=== PATIENT | female | born 1965 | race Caucasian/White ===

== ENCOUNTER → 2019-01-17 08:11 | Outpatient (CLI) | payer OTHER, SELFPAY ==
--- NOTE | 2019-01-17 08:13 | DI.MRI.S_ITS ---
PROCEDURE: MR SHOULDER RT WO CON INDICATIONS: Rule out torn rotator cuff or tendon TECHNIQUE: Noncontrast oblique coronal T2 fast spin echo with fat saturation, oblique sagittal T1 spin echo and T2 fast spin echo with fat saturation, axial T1 spin echo and T2 fast spin echo with fat saturation through the shoulder. COMPARISON: None. FINDINGS: Image quality: Degraded by motion artifact. Rotator cuff: There is severe motion artifact on the fat-suppressed sagittal T2 weighted pulse sequence however on the coronal sequences, there appears to be supraspinatus tendinopathy and low grade articular and bursal surface fraying. No full thickness defect seen. Infraspinatus tendinopathy is suspected, with bursal and articular surface fraying. Subscapularis and teres minor tendons grossly intact. No definite atrophy of the rotator cuff musculature Bones and bursae: No bone marrow contusions or fractures. Moderate hypertrophic acromioclavicular joint degeneration. The acromion demonstrates conventional anatomy, without an os acromiale. No pathologic subacromial-subdeltoid or subcoracoid bursal fluid is present. Capsule and soft tissues: There is ill-defined presumed degenerative appearance of the superior labrum however no discrete fluid signal intensities are identified by strict MR criteria. Remaining labrum appears grossly intact. The long head of the biceps tendon demonstrates normal location and morphology. The rotator interval appears normal, without fibrosis. The coracohumeral ligament is normal in thickness. IMPRESSION: Severely motion degraded examination in particular involving the fat-suppressed sagittal T2 weighted pulse sequence. Within those constraints, there is supraspinatus and infraspinatus tendinopathy with low-grade bursal and articular surface fraying. No full thickness defect identified. Ill-defined presumed degeneration/fraying of the superior labrum, which is potentially age-appropriate. Dictated by: Didier Arnold M.D. on 01/17/2019 at 10:37 Approved by: Didier Arnold M.D. on 01/17/2019 at 10:46
== END ==
PROVIDERS: PCP Family Medicine; Visit Provider Nurse Practitioner
DX: M25.511 Pain in right shoulder (principal); M19.011 Primary osteoarthritis, right shoulder; M67.911 Unspecified disorder of synovium and tendon, right shoulder
CPT/HCPCS: 73221

== ENCOUNTER → 2019-06-23 10:16 | Outpatient (CLI) | payer OTHER, SELFPAY ==
[2019-06-23 10:51] LABS: Add Manual Diff / Slide Review NO; Basophils Absolute Auto 0 /uL (0-100); Basophils Percent Auto 0.7 % (0-2); Eosinophils Absolute Auto 100 /uL (0-450); Eosinophils Percent Auto 0.8 % (2-4); Hematocrit 40.1 % (36-46); Hemoglobin 13.4 g/dL (12.0-16.0); Lymphocytes Absolute Auto 1700 /uL (1100-4500); Lymphocytes Percent Auto 25.3 % (25-40); Mean Corpuscular HGB Conc 33.4 % (30-36); Mean Corpuscular Hemoglobin 33.3 PG (26-34); Mean Corpuscular Volume 99.8 fL (80-100); Monocytes Absolute Auto 600 /uL (0-900); Monocytes Percent Auto 8.3 % (3-14); Neutrophils Absolute Auto 4500 /uL (1500-7000); Neutrophils Percent Auto 64.9 % (50-75); Platelet Count 251 X10^3/uL (150-400); Red Blood Cell Count 4.02 X10^6/uL (4.0-5.2); Red Cell Distribution Width 14.4 % (11.6-14.8); White Blood Cell Count 6.9 X10^3/uL (4.5-11.0)
[2019-06-23 11:36] LABS: Thyroid Stimulating Hormone 0.86 uIU/mL (0.47-4.68)
[2019-06-23 16:23] LABS: Free T3, Triiodothyronine Free 2.94 pg/mL (2.77-5.27); Free T4, Direct Thyroxine 0.86 ng/dL (0.78-2.19)
== END ==
PROVIDERS: PCP Family Medicine; Visit Provider Family Medicine
DX: D64.9 Anemia, unspecified (principal); E28.319 Asymptomatic premature menopause
CPT/HCPCS: 36415; 84439; 84443; 84481; 85025

== ENCOUNTER → 2019-08-10 10:38 | Outpatient (CLI) | payer OTHER, SELFPAY ==
[2019-08-10 11:04] LABS: Add Manual Diff / Slide Review NO; Basophils Absolute Auto 0 /uL (0-100); Basophils Percent Auto 0.5 % (0-2); Eosinophils Absolute Auto 0 /uL (0-450); Eosinophils Percent Auto 0.3 % (2-4); Hematocrit 44.6 % (36-46); Hemoglobin 15.2 g/dL (12.0-16.0); Lymphocytes Absolute Auto 1800 /uL (1100-4500); Lymphocytes Percent Auto 19.9 % (25-40); Mean Corpuscular Volume 100.3 fL (80-100); Monocytes Absolute Auto 600 /uL (0-900); Neutrophils Absolute Auto 6800 /uL (1500-7000); Neutrophils Percent Auto 73.3 % (50-75); Platelet Count 273 X10^3/uL (150-400); Red Blood Cell Count 4.45 X10^6/uL (4.0-5.2); Red Cell Distribution Width 14.1 % (11.6-14.8); White Blood Cell Count 9.3 X10^3/uL (4.5-11.0)
[2019-08-10 11:39] LABS: Alanine Aminotransferase 24 IU/L (<35); Albumin Globulin Ratio 2.1 (1.0-2.8); Alkaline Phosphatase 115 U/L (38-126); Aspartate Aminotransferase 30 IU/L (14-36); BUN Creatinine Ratio 33.3 (6-22); Bilirubin Total 0.4 mg/dL (0.2-1.3); Blood Urea Nitrogen 20 mg/dL (7-17); Calcium 10.1 mg/dL (8.4-10.2); Carbon Dioxide 28 mmol/L (22-32); Chloride 106 mmol/L (98-107); Estimated Glomerular Filt Rate > 60.0 mL/min (>60); Globulin 2.4 g/dL (1.7-4.1); Glucose 111 mg/dL (70-100); HEMOLYSIS < 15 (0-50); Potassium 4.7 mmol/L (3.4-5.1); Sodium 142 mmol/L (137-145); Total Protein 7.4 g/dL (6.3-8.2)
[2019-08-10 11:55] LABS: Free T3, Triiodothyronine Free 3.29 pg/mL (2.77-5.27); Free T4, Direct Thyroxine 0.94 ng/dL (0.78-2.19)
[2019-08-10 12:09] LABS: Thyroid Stimulating Hormone 0.84 uIU/mL (0.47-4.68)
[2019-08-11 16:24] LABS: Vitamin B12 426 pg/mL (239-931)
== END ==
PROVIDERS: PCP Family Medicine; Visit Provider Family Medicine
DX: C81.90 Hodgkin lymphoma, unspecified, unspecified site (principal); I10 Essential (primary) hypertension; R63.4 Abnormal weight loss; D75.89 Other specified diseases of blood and blood-forming organs
CPT/HCPCS: 36415; 80053; 82607; 84439; 84443; 84481; 85025

== ENCOUNTER → 2022-10-27 09:31 | Outpatient (CLI) | payer OTHER, SELFPAY ==
--- NOTE | 2022-10-27 09:32 | DI.MG.S_ITS ---
BILATERAL DIGITAL SCREENING MAMMOGRAM 3D/2D WITH CAD: 10/27/2022 CLINICAL: Routine screening. Comparison is made to exams dated: 07/16/2012 mammogram and 09/28/2008 mammogram - [facility]. There are scattered areas of fibroglandular density in both breasts (category b / 25%-50% glandular tissue). Current study was also evaluated with a Computer Aided Detection (CAD) system. There is a new irregular asymmetry in the right breast at 4 o'clock posterior depth. No other significant masses, calcifications, or other findings are seen in either breast. IMPRESSION: INCOMPLETE: NEEDS ADDITIONAL IMAGING EVALUATION The new irregular asymmetry in the right breast is indeterminate. Additional views with possible ultrasound are recommended. Based on the Tyrer Cuzick model (a risk assessment model) the patient's lifetime risk is 3.6% and her 10 year risk is 1.1%. According to the ACR, ACS, and NCCN guidelines, an annual breast MRI exam along with mammogram is recommended if the patient's lifetime risk is 20% or greater. This exam was interpreted at Station ID: [id number]. NOTE: For mammograms, a report in lay terms will be sent to the patient. Approximately 15% of breast malignancies will not be visualized mammographically. In the management of a palpable breast mass, a negative mammogram must not discourage biopsy of a clinically suspicious lesion. Electronically Signed By: Mukesh fountain/zhane:10/27/2022 10:29:05 letter sent: Additional Imaging Needed ACR BI-RADS Category 0: Incomplete 3340F
== END ==
PROVIDERS: PCP Family Medicine; Referring Provider Family Medicine; Visit Provider Family Medicine
DX: Z12.31 Encounter for screening mammogram for malignant neoplasm of breast (principal)
CPT/HCPCS: 77063; 77067

== ENCOUNTER → 2022-12-12 08:41 | Outpatient (CLI) | payer OTHER, SELFPAY ==
--- NOTE | 2022-12-12 | DI.MG.S_ITS ---
UNILATERAL RIGHT DIGITAL DIAGNOSTIC MAMMOGRAM 3D/2D WITH ADDITIONAL VIEWS: 12/12/2022 CLINICAL: Additional evaluation requested from prior study. Comparison is made to exams dated: 10/27/2022 mammogram and 07/16/2012 mammogram - [facility]. There are scattered areas of fibroglandular density in the right breast (category b / 25%-50% glandular tissue). There is a new oval focal asymmetry with a circumscribed margin in the right breast at 4 o'clock posterior depth. This is seen in additional views. No other significant masses or calcifications are seen in the breast. IMPRESSION: INCOMPLETE: NEEDS ADDITIONAL IMAGING EVALUATION The new oval focal asymmetry in the right breast is indeterminate. An ultrasound is recommended. Based on the Tyrer Cuzick model (a risk assessment model) the patient's lifetime risk is 3.6% and her 10 year risk is 1.1%. According to the ACR, ACS, and NCCN guidelines, an annual breast MRI exam along with mammogram is recommended if the patient's lifetime risk is 20% or greater. This exam was interpreted at Station ID: [id number]. NOTE: For mammograms, a report in lay terms will be sent to the patient. Approximately 15% of breast malignancies will not be visualized mammographically. In the management of a palpable breast mass, a negative mammogram must not discourage biopsy of a clinically suspicious lesion. Electronically Signed By: Fransisco jon/zhane:12/12/2022 11:04:17 ACR BI-RADS Category 0: Incomplete 3340F
--- NOTE | 2022-12-12 08:42 | DI.US.S_ITS ---
LIMITED ULTRASOUND OF RIGHT BREAST: 12/12/2022 CLINICAL: Additional views of right breast. Comparison is made to exams dated: 12/12/2022 mammogram, 10/27/2022 mammogram, and 07/16/2012 mammogram - [facility]. Color flow ultrasound of the right breast 4 o'clock region was performed. Meeks scale images of the real-time examination were reviewed. There is a 0.3 cm x 0.3 cm x 0.2 cm oval mass with a circumscribed margin in the right breast at 4 o'clock posterior depth 10 cm from the nipple. This oval mass is hypoechoic. This correlates with mammography findings. IMPRESSION: PROBABLY BENIGN The 0.3 cm x 0.3 cm x 0.2 cm oval mass in the right breast most likely is a complicated cyst and is probably benign. A follow-up right mammogram and an ultrasound in 6 months is recommended to demonstrate stability. This exam was interpreted at Station ID: [id number]. Electronically Signed By: Fransisco jon/zhane:12/12/2022 11:06:22 letter sent: Followup Recommended Ultrasound BI-RADS: 3 Probably benign
== END ==
PROVIDERS: PCP Family Medicine; Referring Provider Family Medicine; Visit Provider Family Medicine
DX: R92.8 Other abnormal and inconclusive findings on diagnostic imaging of breast (principal); N63.14 Unspecified lump in the right breast, lower inner quadrant
CPT/HCPCS: 76642; 77065; G0279

== ENCOUNTER → 2023-05-22 09:19 | Outpatient (CLI) | payer OTHER, SELFPAY ==
--- NOTE | 2023-05-22 09:20 | DI.US.S_ITS ---
ULTRASOUND OF RIGHT BREAST: 05/22/2023 CLINICAL: 6 month follow up of right breast. Comparison is made to exams dated: 05/22/2023 mammogram, 12/12/2022 ultrasound, 12/12/2022 mammogram, 10/27/2022 mammogram, 07/16/2012 mammogram, and 09/28/2008 mammogram - [facility]. Color flow ultrasound of the right breast was performed. Meeks scale images of the real-time examination were reviewed. There is a 0.4 cm x 0.2 cm x 0.5 cm oval mass with a circumscribed margin in the right breast at 4 o'clock posterior depth 10 cm from the nipple. This oval mass is hypoechoic with internal echoes and no posterior acoustic shadowing or enhancement. This abnormality is not significantly changed and correlates with mammography findings. Color flow imaging demonstrates that there is no vascularity present. IMPRESSION: PROBABLY BENIGN The 0.4 cm x 0.2 cm x 0.5 cm oval mass in the right breast most likely is a complicated cyst and is probably benign. A follow-up bilateral mammogram and a right ultrasound in 6 months is recommended to demonstrate stability. Findings and recommendations were conveyed to the patient during today's evaluation. This exam was interpreted at Station ID: [id number]. Electronically Signed By: Malik Escobar M.D. aty/:05/22/2023 11:33:31 letter sent: Followup Recommended Ultrasound BI-RADS: 3 Probably benign
--- NOTE | 2023-05-22 09:20 | DI.MG.S_ITS ---
UNILATERAL RIGHT DIGITAL DIAGNOSTIC MAMMOGRAM 3D/2D: 05/22/2023 CLINICAL: Patient returns for a 6 month follow up of the right breast. Comparison is made to exams dated: 12/12/2022 mammogram, 10/27/2022 mammogram, 07/16/2012 mammogram, and 09/28/2008 mammogram - [facility]. There are scattered areas of fibroglandular density in the right breast (category b / 25%-50% glandular tissue). Redemonstration of previously described oval focal asymmetry with a circumscribed margin in the right breast at 4 o'clock posterior depth. This is not significantly changed and correlates with ultrasound findings. No other significant masses or calcifications are seen in the breast. IMPRESSION: INCOMPLETE: NEEDS ADDITIONAL IMAGING EVALUATION The oval focal asymmetry in the right breast is indeterminate. An ultrasound is recommended for further evaluation and is scheduled to immediately follow this examination. Based on the Tyrer Cuzick model (a risk assessment model) the patient's lifetime risk is 3.5% and her 10 year risk is 1.1%. According to the ACR, ACS, and NCCN guidelines, an annual breast MRI exam along with mammogram is recommended if the patient's lifetime risk is 20% or greater. This exam was interpreted at Station ID: [id number]. NOTE: For mammograms, a report in lay terms will be sent to the patient. Approximately 15% of breast malignancies will not be visualized mammographically. In the management of a palpable breast mass, a negative mammogram must not discourage biopsy of a clinically suspicious lesion. Electronically Signed By: Malik Escobar M.D. aty/:05/22/2023 11:30:46 ACR BI-RADS Category 0: Incomplete 3340F
== END ==
PROVIDERS: PCP Family Medicine; Referring Provider Family Medicine; Visit Provider Family Medicine
DX: R92.8 Other abnormal and inconclusive findings on diagnostic imaging of breast (principal); N63.14 Unspecified lump in the right breast, lower inner quadrant; N60.09 Solitary cyst of unspecified breast
CPT/HCPCS: 76642; 77065; G0279

== ENCOUNTER → 2023-08-07 11:06 | Outpatient (CLI) | payer OTHER, SELFPAY ==
[2023-08-07 12:18] LABS: Cholesterol 185 mg/dL (140-199); Triglycerides 49 mg/dL (35-150)
[2023-08-07 12:29] LABS: HDL Cholesterol 125 mg/dL (40-60); LDL Cholesterol Calculated 50 mg/dL (<100)
== END ==
PROVIDERS: PCP Family Medicine; Visit Provider Family Medicine
DX: Z13.220 Encounter for screening for lipoid disorders (principal); I10 Essential (primary) hypertension
CPT/HCPCS: 80061

== ENCOUNTER → 2023-12-17 09:24 | Outpatient (CLI) | payer OTHER, SELFPAY ==
--- NOTE | 2023-12-17 09:25 | DI.US.S_ITS ---
PROCEDURE: US BREAST RT LIMITED COMPARISON: [facility], BREAST RT LIMITED, 05/22/2023, 10:33. INDICATIONS: abnormal mammogram/6m recheck FINDINGS: IMPRESSION: Dictated by: Janette García M.D. on 12/17/2023 at 10:23 Approved by: Janette García M.D. on 12/17/2023 at 10:25
--- NOTE | 2023-12-17 09:25 | DI.MG.S_ITS ---
BILATERAL DIGITAL DIAGNOSTIC MAMMOGRAM 3D/2D: 12/17/2023 CLINICAL: Patient returns for a 6 month follow up of the right breast, due for bilateral exam. Comparison is made to exams dated: 05/22/2023 mammogram, 12/12/2022 mammogram, 10/27/2022 mammogram, and 07/16/2012 mammogram - [facility]. There are scattered areas of fibroglandular density in both breasts (category b / 25%-50% glandular tissue). There is a stable oval focal asymmetry with a circumscribed margin in the right breast at 4 o'clock posterior depth. This correlates with ultrasound findings. No other significant masses, calcifications, or other findings are seen in either breast. Left breast mammogram is stable. IMPRESSION: INCOMPLETE: NEEDS ADDITIONAL IMAGING EVALUATION Bilateral mammograms are stable. The oval focal asymmetry in the right breast is stable. An ultrasound is recommended to ensure stability. This was performed immediately following this exam. Based on the Tyrer Cuzick model (a risk assessment model) the patient's lifetime risk is 3.5% and her 10 year risk is 1.1%. According to the ACR, ACS, and NCCN guidelines, an annual breast MRI exam along with mammogram is recommended if the patient's lifetime risk is 20% or greater. This exam was interpreted at Station ID: [id number]. NOTE: For mammograms, a report in lay terms will be sent to the patient. Approximately 15% of breast malignancies will not be visualized mammographically. In the management of a palpable breast mass, a negative mammogram must not discourage biopsy of a clinically suspicious lesion. Electronically Signed By: Janette mckeon/:12/17/2023 09:54:45 ACR BI-RADS Category 0: Incomplete 3340F
--- NOTE | 2023-12-17 10:11 | DI.US.S_ITS ---
Patient Name: CLAYTON ANDRADE date: 1965 Sex: F Attending Physician: Warner Indications: Date: 12/17/2023 10:36 At the request of: RODRIGO PORTILLO Procedure: US breast RT limited LIMITED ULTRASOUND OF RIGHT BREAST: 12/17/2023 CLINICAL: Patient returns today for 6 month follow up of a focal asymmetry in the right breast. Comparison is made to exams dated: 12/17/2023 mammogram, 05/22/2023 ultrasound, 05/22/2023 mammogram, 12/12/2022 ultrasound, 12/12/2022 mammogram, and 10/27/2022 mammogram - [facility]. Color flow and real-time ultrasound of the right breast 4 o'clock region were performed. Meeks scale images of the real-time examination were reviewed. There is a 0.3 cm x 0.2 cm x 0.5 cm oval mass with a circumscribed margin in the right breast at 4 o'clock posterior depth 10 cm from the nipple. This oval mass is hypoechoic with internal echoes and no posterior acoustic shadowing or enhancement. This abnormality is not significantly changed and correlates with mammography findings. Color flow imaging demonstrates that there is no vascularity present. IMPRESSION: PROBABLY BENIGN The 0.3 cm x 0.2 cm x 0.5 cm oval mass in the right breast most likely is a complicated cyst, has not significantly changed, and is probably benign. A follow-up right ultrasound in 6 months is recommended to demonstrate stability. Findings and recommendations were conveyed to the patient at time of exam. This exam was interpreted at Station ID: [id number]. Electronically Signed By: Janette mckeon/:12/17/2023 10:36:58 Continued Report - Page 2 of 2 Patient Name: CLAYTON ANDRADE date: 1965 Sex: F Attending Physician: Warner Indications: Date: 12/17/2023 10:36 At the request of: RODRIGO PORTILLO Procedure: US breast RT limited letter sent: Followup Recommended Ultrasound BI-RADS: 3 Probably benign
== END ==
LOC: MAMMO 09:24
PROVIDERS: PCP Family Medicine; Referring Provider Family Medicine; Visit Provider Family Medicine
DX: R92.8 Other abnormal and inconclusive findings on diagnostic imaging of breast (principal); N60.01 Solitary cyst of right breast; R92.323 Mammographic fibroglandular density, bilateral breasts; N63.14 Unspecified lump in the right breast, lower inner quadrant
CPT/HCPCS: 76642; 77066; G0279

== ENCOUNTER → 2024-10-23 10:39 | Outpatient (CLI) | payer OTHER, SELFPAY ==
--- NOTE | 2024-10-23 10:40 | DI.CT.S_ITS ---
PROCEDURE: CT LUNG LOW DOSE SCREENING INDICATIONS: Lung nodule and tobacco use TECHNIQUE: Noncontrast 2.0-2.5 mm thick sections acquired from the pulmonary apices to the posterior costophrenic angles. 7 mm thick axial MIP, and 5 mm coronal and sagittal reformats were then acquired. For radiation dose reduction, the following was used: automated exposure control, adjustment of mA and/or kV according to patient size. COMPARISON: [facility], CT, CT CHEST ABDOMEN PELVIS WITH CONTRAST, 06/08/2023, 10:39. FINDINGS: Image quality: Diagnostic. Lungs and Pleura: Minor biapical fibrotic scarring and mild centrilobular emphysematous change. Central and peripheral airways are normal without bronchial wall thickening or bronchiectasis. No nodule, mass, ground-glass opacity, or consolidation. No pleural effusions or pleural calcifications. Lower Neck: No enlarged lymph nodes. Thyroid: Normal CT appearance. Axillae: No enlarged lymph nodes. Chest Wall: No suspicious chest wall lesions. Bones: No suspicious bone lesion. Mild degenerative changes in the spine. Thoracic Vessels: The aorta and pulmonary arteries demonstrate normal size. Mediastinum and Tammy: No enlarged lymph nodes. Heart: Heart size is normal. No pericardial effusion. Mild coronary calcification. Esophagus: No wall thickening. No hiatal hernia. . Upper Abdomen: Moderate hepatic steatosis. Visible portions of upper abdominal organs are otherwise normal. IMPRESSION: No suspicious pulmonary nodules. LUNG-RADS 1; continued annual screening, if eligible. Clinically Significant Non-pulmonary Findings: None. Moderate hepatic steatosis. Dictated by: Janette García M.D. on 10/23/2024 at 21:20 Approved by: Janette García M.D. on 10/23/2024 at 21:25
== END ==
PROVIDERS: PCP Family Medicine; Referring Provider Family Medicine; Visit Provider Family Medicine
DX: R91.1 Solitary pulmonary nodule (principal); I25.10 Atherosclerotic heart disease of native coronary artery without angina pectoris; K76.0 Fatty (change of) liver, not elsewhere classified; Z12.2 Encounter for screening for malignant neoplasm of respiratory organs; F17.210 Nicotine dependence, cigarettes, uncomplicated
CPT/HCPCS: 71271

== ENCOUNTER → 2024-11-04 10:09 | Outpatient (CLI) | payer OTHER, SELFPAY ==
--- NOTE | 2024-11-04 10:10 | DI.US.S_ITS ---
LIMITED ULTRASOUND OF RIGHT BREAST: 11/04/2024 CLINICAL: Late 6 month follow-up of cyst in the right breast. Comparison is made to exams dated: 11/04/2024 mammogram, 12/17/2023 ultrasound, 12/17/2023 mammogram, 05/22/2023 ultrasound, 12/12/2022 ultrasound, and 10/27/2022 mammogram - [facility]. Additional films were requested but not obtained. Color flow and real-time ultrasound of the right breast 4 o'clock region were performed. Meeks scale images of the real-time examination were reviewed. There is a stable benign 0.5 cm x 0.3 cm x 0.2 cm oval mass in the right breast at 4 o'clock posterior depth 10 cm from the nipple. This oval mass is hypoechoic with internal echoes. This correlates with mammography findings. Color flow imaging demonstrates that there is no vascularity present. IMPRESSION: BENIGN There is no sonographic evidence of malignancy. The stable 0.5 cm mass or complicated cyst in the right breast demonstrates long-term stability and is benign. A 1 year screening mammogram is recommended. Exam findings were conveyed to the patient. This exam was interpreted at Station ID: [id number]. Electronically Signed By: Edwar Carballo M.D. [facility] [place]/:11/04/2024 11:19:50 letter sent: Normal Exam ACR BI-RADS Category 2: Benign
--- NOTE | 2024-11-04 10:10 | DI.MG.S_ITS ---
BILATERAL DIGITAL DIAGNOSTIC MAMMOGRAM 3D/2D SHORT-TERM FOLLOW-UP: 11/04/2024 CLINICAL: Short term follow up of the right breast, due for bilateral imaging. Comparison is made to exams dated: 12/17/2023 ultrasound, 12/17/2023 mammogram, 05/22/2023 ultrasound, 05/22/2023 mammogram, 10/27/2022 mammogram, and 12/12/2022 mammogram - [facility]. There are scattered areas of fibroglandular density (category b / 25%-50% glandular tissue). There is a stable oval focal asymmetry with a circumscribed margin in the right breast at 4 o'clock posterior depth. This correlates with ultrasound findings. No other significant masses, calcifications, or other findings are seen in either breast. IMPRESSION: INCOMPLETE: NEED ADDITIONAL IMAGING EVALUATION The stable oval focal asymmetry in the right breast is indeterminate. A targeted ultrasound is recommended and will immediately follow. Based on the Tyrer Cuzick model (a risk assessment model) the patient's lifetime risk is 3.5% and her 10 year risk is 1.2%. According to the ACR, ACS, and NCCN guidelines, an annual breast MRI exam along with mammogram is recommended if the patient's lifetime risk is 20% or greater. This exam was interpreted at Station ID: [id number]. NOTE: For mammograms, a report in lay terms will be sent to the patient. Approximately 15% of breast malignancies will not be visualized mammographically. In the management of a palpable breast mass, a negative mammogram must not discourage biopsy of a clinically suspicious lesion. Electronically Signed By: Edwar Carballo M.D. [facility] [place]/:11/04/2024 10:49:06 letter sent: Additional Imaging Needed ACR BI-RADS Category 0: Incomplete: Need Additional Imaging Evaluation
== END ==
PROVIDERS: PCP Family Medicine; Referring Provider Family Medicine; Visit Provider Family Medicine
DX: R92.8 Other abnormal and inconclusive findings on diagnostic imaging of breast (principal); N60.01 Solitary cyst of right breast
CPT/HCPCS: 76642; 77066; G0279

== ENCOUNTER 2025-04-06 08:41 | Day surgery (SDC) | payer OTHER, SELFPAY ==
[2025-04-06] MEDS: LACTATED RINGERS 1,000 ML 100 ML IV (09:14)
[2025-04-06 09:17] VITALS: BP 156/78; PULSE 84; RESP 961; TEMP 36.8; O2SAT 96
--- NOTE | 2025-04-06 09:55 | PM.HP.IH.1 ---
History of Present Illness History of Present Illness Date Patient Seen: 04/06/25 Time Patient Seen: 09:55 Chief complaint: Colonoscopy Narrative: Sofy is a 60-year-old woman who is here for a colonoscopy. She has never had a colonoscopy before. [facility] Medical History Tobacco use disorder Menopausal symptoms Weight loss, unintentional Hodgkins lymphoma Depression Smoker Surgical History (Updated 05/21/21 @ 15:40 by Jaja Ladd DO) History of autologous stem cell transplant (~11/2018) Status post tubal ligation Status post breast biopsy History of bladder suspension procedure Status post appendectomy Status post hysterectomy with oophorectomy Social History (Updated 11/16/19 @ 15:16 by Jarad De La O MA) Smoking Status: Current every day smoker Tobacco: How many years used: 30 quit status: not considering quitting alcohol intake: current substance use type: marijuana Meds Home Medications and Allergies Home Medications ?Medication ?Instructions ?Recorded ?Confirmed ?Type cholecalciferol (vitamin D3) 25 1,000 unit PO DAILY 01/07/19 04/06/25 History mcg (1,000 unit) capsule progesterone micronized 200 mg 400 mg (2 x 200 mg) PO QPM #180 10/03/24 04/06/25 Rx capsule caps estradiol 0.5 mg tablet 0.5 mg PO DAILY #90 tabs 03/30/25 04/06/25 Rx lorazepam 1 mg tablet 1 mg PO BID PRN anxiety #12 tabs 03/30/25 04/06/25 Rx Allergies Allergy/AdvReac Type Severity Reaction Status Date / Time aspirin (ASPIRIN) Allergy Mild HIVES Verified 04/06/25 09:15 codeine (CODEINE) Allergy Mild HIVES Verified 04/06/25 09:15 hydrocodone (HYDROCODONE) Allergy Mild HIVES Verified 04/06/25 09:15 lisinopril (LISINOPRIL) Allergy Mild COUGH Verified 04/06/25 09:15 Penicillins (PENICILLINS) Allergy Mild HIVES Verified 04/06/25 09:15 rofecoxib (ROFECOXIB) Allergy Mild HIVES, Verified 04/06/25 09:15 ITCHING Exam Vital Signs (past 8 hours): - 04/06/25 09:17 Temperature 98.3 F Pulse Rate 84 Respiratory Rate 961 H Blood Pressure 156/78 H Pulse Oximetry 96 Oxygen Delivery Method Room Air Oxygen Delivery Method Room Air Const General: No acute distress Assessment & Plan Assessment and plan (1) Colon cancer screening: Status: Acute Plan Colonoscopy Time-Based Coding :: [TOTAL MINUTES] spent with patient and on the chart (including review of chart, obtaining history, exam, reviewing outside data, placing orders, documenting exam and treatment plan, and counseling patient) on [DATE]. 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
--- NOTE | 2025-04-06 10:33 | PM.OP.COLON ---
Operative Date/Time/Diagnoses Date of procedure: 04/06/25 Time of procedure: 10:33 Pre-op diagnosis: Colon cancer screening Post-op diagnosis: same Procedure & Clinicians Study performed: Colonoscopy Same procedure(s) as scheduled: Yes Surgeon: Jose L Merritt Anesthesia Type: MAC +/- Procedure Notes Procedure in detail: Surgeon: Jose L Merritt MD Anesthesia: Inna Pham CRNA Procedure: The patient was brought to the endoscopy suite, placed in left lateral decubitus position. The patient was connected to monitoring devices. A time-out was performed. Sedation was administered. Once the patient was adequately sedated, a digital rectal exam was performed and was normal. The scope was then inserted and advanced to the cecum where the appendiceal orifice was identified and photographed. The scope was then slowly withdrawn over greater than 6 minutes. The mucosa was thoroughly inspected. No abnormalities were found. The scope was retroflexed in the rectum. The scope was straightened and removed. The patient was awakened and brought to recovery. Scope withdrawal time: 9 minutes Sedation time: 20 minutes EBL: 0 Findings: Normal colon Post-procedure Recommendations: Colonoscopy in 10 years Disposition: PACU
[2025-04-06 10:34] VITALS: BP 156/68; PULSE 81; RESP 19; TEMP 36.2; O2SAT 100
[2025-04-06 10:41] VITALS: BP 146/71; PULSE 78; RESP 19; O2SAT 100
== END 2025-04-06 10:46 | disposition home or self-care (01) ==
PROVIDERS: PCP Family Medicine; Referring Provider Surgery; Visit Provider Surgery
PROC: 0DJD8ZZ Inspection of Lower Intestinal Tract, Via Natural or Artificial Opening Endoscopic (ICD-10-PCS; CPT 45378; principal; 2025-04-06 10:00)
DX: Z12.11 Encounter for screening for malignant neoplasm of colon (principal); F17.210 Nicotine dependence, cigarettes, uncomplicated
CPT/HCPCS: 45378; J2704